=== PATIENT | male | born 1955 | race Two or more races ===

== ENCOUNTER 2023-10-07 13:06 | Inpatient (IN) | payer MEDICARE, BC ==
[~2023-10-07] VITALS: Ht 172.7 cm; Wt 93.2 kg
[2023-10-07 13:55] LABS: Hematocrit 36.7 % (41.0-53.0); Hemoglobin 12.8 g/dL (13.5-17.5); Mean Corpuscular Hemoglobin 30.9 pg (28.0-32.0); Mean Corpuscular Hgb Conc. 34.8 g/dL (32.0-36.0); Mean Corpuscular Volume 88.6 fL (80.0-100.0); Platelet Count (auto) 259 10^3/uL (140-450); Red Blood Cells 4.15 10^6/uL (4.5-5.90); Red Cell Distribution Width 13.2 % (11.8-14.3); White Blood Cell 6.9 10^3/uL (4.4-10.8)
[2023-10-07 14:00] LABS: Chloride 91 mmol/L (98-107); Potassium 4.6 mmol/L (3.5-5.1); Sodium 123 mmol/L (136-145)
[2023-10-07 14:01] LABS: Anion Gap 7 (5-15); Band Neutrophils % (manual) 0; Basophils % (manual) 0 (0.0-2.0); Blast Cells 0; Calcium 10.7 mg/dL (8.7-10.4); Carbon Dioxide 25 mmol/L (20-30); Metamyelocytes % 0; Myelocytes % 0; Promyelocytes % 0; Reactive Lymphocytes 0
[2023-10-07 14:06] LABS: BUN/Creatinine Ratio 9.2 (10.0-20.0); Blood Urea Nitrogen 12 mg/dL (9-23); Glucose 103 mg/dL (74-106)
[2023-10-07 14:45] LABS: Eosinophils % (manual) 17 (0-7); Lymphocytes % (manual) 24 (10.0-50.0); Monocytes % (manual) 7 (0-12); Platelet Estimate Adequate
[2023-10-07 17:05] VITALS: PULSE 85; RESP 19; O2SAT 99
[2023-10-07] MEDS: SODIUM CHLORIDE 0.9% 1,000 ML IV ONE ×2 (18:13)
[2023-10-07] MEDS ORDERED: ONDANSETRON HCL 4 MG/2 ML VIAL IV PRN (18:15)
[2023-10-07] MEDS: SODIUM CHLORIDE 0.9% 1,000 ML IV SCH (18:15)
[2023-10-07] MEDS ORDERED: DEXTROSE (50%) 50ML SYRG IV PRN (18:15)
[2023-10-07 19:30] VITALS: PULSE 114; RESP 15; O2SAT 97
[2023-10-07 21:00] VITALS: PULSE 106; RESP 18; O2SAT 97
[2023-10-07] MEDS: InsuLIN REG 1unit/0.01ml Soln (100units/ml) SC SCH (21:54)
[2023-10-07] MEDS: ACCU-CHEK COMFORT CURVE STRIP VI SCH (21:54)
[2023-10-07 22:07] VITALS: BP 142/85; PULSE 102; RESP 17; TEMP 98.7; O2SAT 94
[2023-10-07 22:10] VITALS: PULSE 102; RESP 17; O2SAT 94
[2023-10-07] MEDS: amLODIPine BESYLATE 5 MG TAB PO SCH (22:25)
[2023-10-07] MEDS: ATORVASTATIN 20 MG TAB PO SCH (22:25)
[2023-10-07] MEDS ORDERED: METF-1145 PO (22:38)
[2023-10-07] MEDS ORDERED: ASPI-325 PO (22:38)
[2023-10-07] MEDS ORDERED: AMLO1TAB22 PO (22:38)
[2023-10-07] MEDS ORDERED: ALLO300T2 PO (22:38)
[2023-10-07] MEDS ORDERED: ROSU20TA56 PO (22:38)
[2023-10-07 22:41] LABS: Protein, Urine < 6.0 mg/dL (0.0-11.9)
[2023-10-07 22:44] LABS: Creatinine, Urine 27.08 mg/dL (30.0-125.0); Urine Protein/Creatinine Ratio 0.22
[2023-10-08] VITALS (7 sets, daily range): BP systolic 95–157; BP diastolic 63–92; PULSE 62–85; RESP 16–18; TEMP 98.1–99.1; O2SAT 95–98
[2023-10-08 03:33] LABS: Urine Bacteria None Seen /hpf (None Seen)
[2023-10-08 03:37] LABS: Urine Blood Negative /uL (Negative); Urine Clarity Clear (Clear); Urine Color Colorless (Yellow); Urine Protein, UAD Negative (Negative); Urine Specific Gravity 1.003 (1.001-1.035); Urine Urobilinogen Normal (Negative); Urine WBC <1 /hpf (0 - 3)
[2023-10-08] MEDS: InsuLIN REG 1unit/0.01ml Soln (100units/ml) SC SCH (06:09)
[2023-10-08 06:17] LABS: Alanine Aminotransferase 13 U/L (7-40); Alkaline Phosphatase 45 U/L (46-116); Anion Gap 5 (5-15); BUN/Creatinine Ratio 9.4 (10.0-20.0); Blood Urea Nitrogen 11 mg/dL (9-23); Calcium 10.2 mg/dL (8.7-10.4); Carbon Dioxide 24 mmol/L (20-30); Chloride 102 mmol/L (98-107); Glucose 102 mg/dL (74-106); Potassium 4.3 mmol/L (3.5-5.1); Sodium 131 mmol/L (136-145)
[2023-10-08 06:19] LABS: Aspartate Aminotransferase 16 U/L (13-40); Bilirubin, Total 0.5 mg/dL (0.2-1.0); Total Protein 6.6 g/dL (5.7-8.2)
[2023-10-08] MEDS: ASPirin 81 mg TAB PO SCH (10:21)
[2023-10-08] MEDS: ALLOPURINOL 100 MG TAB PO SCH (10:22)
== END 2023-10-08 16:48 | disposition home or self-care (01) | DRG 683 ==
LOC: ER 13:06 → OVERFLOW 18:17 → WEST WING 22:06
PROVIDERS: ADMIT Internal Medicine; ATTEND Internal Medicine
DX: N17.9 Acute kidney failure, unspecified (principal); E87.1 Hypo-osmolality and hyponatremia; E78.5 Hyperlipidemia, unspecified; M10.9 Gout, unspecified; E86.0 Dehydration; E83.52 Hypercalcemia; I12.9 Hypertensive chronic kidney disease with stage 1 through stage 4 chronic kidney disease, or unspecified chronic kidney disease; E11.22 Type 2 diabetes mellitus with diabetic chronic kidney disease; N18.2 Chronic kidney disease, stage 2 (mild); Z79.82 Long term (current) use of aspirin; Z79.899 Other long term (current) drug therapy
CPT/HCPCS: 36415; 76775; 80048; 80053; 81001; 82306; 82570; 82962; 83880; 83935; 83970; 84100; 84156; 84295; 84300; 84484; 85007; 85027; 96360; 99291; G0378